=== PATIENT | male | born 1965 | race Caucasian/White ===

== ENCOUNTER → 2018-01-16 | Outpatient (CLI) | payer OTHER ==
[~2018-01-16] MED LIST: AMLO10 PO; LISI20; SPIR25 PO
== END | disposition home or self-care (01) ==
LOC: PLD 16:43 → LAB SHORT 16:43
DX: D22.5 Melanocytic nevi of trunk (principal)
CPT/HCPCS: 88305

== ENCOUNTER → 2019-05-06 | Outpatient (CLI) | payer OTHER | END | disposition home or self-care (01) | LOC: PLD 08:53 → LAB SHORT 08:53 | DX: D48.5 Neoplasm of uncertain behavior of skin (principal) | CPT/HCPCS: 88305 ==

== ENCOUNTER → 2023-07-04 | Outpatient (CLI) | payer OTHER | LOC: PLD 07:35 → LAB SHORT 07:35 → LAB 07:35 | DX: C44.612 Basal cell carcinoma of skin of right upper limb, including shoulder (principal); D23.39 Other benign neoplasm of skin of other parts of face | CPT/HCPCS: 88305 ==

== ENCOUNTER → 2024-03-05 | Outpatient (CLI) | payer OTHER ==
[~2024-03-05] MED LIST changes: +ASPI81CH PO; -LISI20; +LISI20 PO; +OXYC5 PO; +PROM25 PO; +SULTRIDS PO
== END ==
LOC: LAB SHORT 15:35 → LAB 15:35
DX: R10.30 Lower abdominal pain, unspecified (principal)
CPT/HCPCS: 87086